=== PATIENT | male | born 1955 | race Caucasian/White ===

== ENCOUNTER 2016-10-20 10:31 | Inpatient (IN) | payer OTHER ==
--- NOTE | ~2016-10-20 | PA ---
Unit #: [id number] #: [id number] Patient: ABDOULAYE RIDDLE [id number] [facility] [address] [place] [address] [id number] I MR#: [id number] NAME: ABDOULAYE RIDDLE ROOM: P121 Age: 61 Sex: M Admission Date: 10/20/2016 : 1955 Date of Assessment: 10/20/2016 Attending Physician: Atiya Merlos M.D. Admitting Physician: Atiya Merlos M.D. Primary Care Physician: Cora Herrera M.D. PSYCHIATRIC ASSESSMENT DATE OF SERVICE 10/20/2016. IDENTIFYING DATA Mr. Riddle is a 61-year-old single white male, who is a resident of [place], [place] and was self-referred to the hospital. CHIEF COMPLAINT "I'm scared. I'm having thoughts of ending it." HISTORY OF PRESENT ILLNESS This is a 61-year-old white male, who was self-referred to the hospital reporting that he is scared and he is having suicidal thoughts, "I'm tired of depression." The patient reports being depressed for over 20 years and his son is a recovering heroin addict and he is afraid he is going to relapse and also reports losing his living-in girlfriend and her children and grandchildren which he considers as family and does report increasing depression, anxiety, irritability, restlessness and agony, feelings of hopelessness and helplessness, and reports suicidal ideations at this time with the plan of taking sleeping pills and was unable to contract for safety and as such, recommendation for inpatient level of care for safety and stabilization was made. SUBSTANCE ABUSE HISTORY The patient denies any history of alcohol or drug abuse. PAST PSYCHIATRIC HISTORY The patient has had psychiatric treatment and has been diagnosed and treated for mood disorder. Review of the medical records indicate that he is supposed to be on a combination of Remeron and Wellbutrin, though it is not clear if he is compliant with the medication as he has not been able to show a therapeutic response to medications. PAST MEDICAL HISTORY Hypertension, dyslipidemia, status post knee replacement. ALLERGIES No known medication allergies. PERSONAL AND SOCIAL HISTORY A 61-year-old white male, who reports that he is single, unemployed, and lives at home with his son and has fairly decent social support system. Unit #: [id number] #: [id number] Patient: ABDOULAYE RIDDLE MENTAL STATUS EXAMINATION Young white male who was casually dressed with fair personal hygiene, appears to be in no acute distress or discomfort. He was awake and alert on interaction with intact orientation to time, place, and person. His mood was anxious and depressed with a congruent affect. His speech was slow and goal directed. He reports having suicidal ideation, but denies any homicidal ideations, and also denies any auditory or visual hallucinations. His insight and judgment remain significantly impaired. DIAGNOSTIC IMPRESSION Psychiatric: Major depressive disorder, recurrent, moderate, without psychotic features. Medical: Hypertension, dyslipidemia, status post knee placement. Stressors: Moderate psychosocial stressors. TREATMENT PLAN 1. The patient has presented with history of mood disorder and has been decompensating and will need inpatient hospitalization for safety and stabilization. We will start him back on his home medications. We will adjust the medications and monitor response. 2. Supportive therapy was provided to the patient. 3. Safe, structured, and nourishing environment will be provided. ESTIMATED LENGTH OF STAY 5 to 7 days. ABILITY TO HELP SELF Limited. WILLINGNESS TO HELP SELF The patient appears to be willing to help self. STRENGTHS 1. Communicative. 2. Cooperative. PROBLEMS 1. Chronic dysphoric symptoms. 2. Poor social support system. DISCHARGE CRITERIA This will be contingent upon the patient's ability to show resolution of his depression and anxiety and his ability to stay safe to himself, particularly after discharge from the hospital. Dictated by... Jairo Lewis/jeromy TD: 10/21/2016 22:59 JOB #: [id number] Unit #: [id number] #: [id number] Patient: ABDOULAYE RIDDLE PSYCHIATRIC ASSESSMENT X Atiya Merlos MD X PSYCHIATRIC ASSESSMENT
--- NOTE | ~2016-10-20 | PN ---
Unit #: [id number] #: [id number] Patient: ABDOULAYE RIDDLE [id number] [facility] [address] [place] [address] [id number] MR#: [id number] NAME: ABDOULAYE RIDDLE ROOM: [facility] Age: 61 Sex: M Admission Date: 10/20/2016 : 1955 Attending Physician: Atiya Merlos M.D. Admitting Physician: Atiya Merlos M.D. Primary Care Physician: Jairo Best PROGRESS NOTES DATE October 24, 2016 DISCUSSION Mr. Riddle is a 61-year-old white male, who was seen today and chart was reviewed and the case was discussed with the staff. He has been anxious, withdrawn, but has not shown any agitation or irritability, and he has been cooperative with the treatment recommendations. He has been taking the medications and tolerating them fairly well. MENTAL STATUS EXAMINATION An elderly white male, who was casually dressed with fair personal hygiene and appears to be in no acute distress or discomfort. He was awake and alert on interaction with intact orientation. His mood is anxious with a congruent affect. His speech is slow and goal-directed. He denies any suicidal or homicidal ideations, and also denies any auditory or visual hallucinations. His insight and judgment remain slightly impaired. TREATMENT PLAN 1. We will continue him on his current medications and treatment protocol, and will monitor his response to the medications, and make further adjustments as needed. 2. We will continue to followup. Dictated by... Jairo Lewis/binu TD: 10/25/2016 11:58 JOB #: [id number] Unit #: [id number] #: [id number] Patient: ABDOULAYE RIDDLE PROGRESS NOTES X Atiya Merlos MD PROGRESS NOTE
--- NOTE | ~2016-10-20 | HP ---
Unit #: [id number] #: [id number] Patient: ABDOULAYE CLEMENTS [id number] [place] [address] [id number] I MR#: [id number] NAME: ABDOULAYE CLEMENTS ROOM: [facility] Age: 61 Sex: M Admission Date: 10/20/2016 : 1955 Attending Physician: Atiya Merlos M.D. Admitting Physician: Atiya Merlos M.D. Primary Care Physician: Cora Herrera M.D. HISTORY AND PHYSICAL HISTORY OF PRESENT ILLNESS The patient is a 61-year-old male admitted to [facility] on 10/20/2016 for suicidal ideation. PAST MEDICAL HISTORY 1. Hypertension. 2. Hyperlipidemia. PAST SURGICAL HISTORY 1. Bilateral knee replacements. 2. Colon resection. 3. Liver surgery. 4. Cholecystectomy. SOCIAL HISTORY The patient works at [employer] and lives with his son. He smokes one to two cigars per day. FAMILY HISTORY Noncontributory. ALLERGIES No known drug allergies. CURRENT MEDICATIONS 1. Wellbutrin. 2. Mirtazapine. 3. Amlodipine. 4. Lovastatin. REVIEW OF SYSTEMS CONSTITUTIONAL: No fever or chills. HEENT: Denies any sore throat, ear pain or runny nose. CARDIOVASCULAR: Denies chest pain, irregular heart rhythm or palpitations. CHEST: Denies shortness of breath or cough. No hemoptysis. GASTROINTESTINAL: Denies nausea, vomiting, diarrhea or chronic constipation. ENDOCRINE: Denies history of increased thirst or urination. No recent significant weight loss or gain. GENITOURINARY: Denies dysuria, frequency, or hematuria. SKIN: Denies any rashes. HEMATOLOGIC: Denies history of increased bleeding or bruising. MUSCULOSKELETAL: Denies any hot, swollen joints. No generalized muscle pain. Unit #: [id number] #: [id number] Patient: ABDOULAYE CLEMENTS NEUROLOGIC: Denies problems with vision or speech. No frequent, severe headaches. No numbness, tingling or weakness in any extremities. Denies loss of bladder or bowel control. PHYSICAL EXAMINATION GENERAL: The patient is awake, alert and oriented, in no acute distress. VITAL SIGNS: Temperature 98.9, heart rate 108, respiratory rate 16, blood pressure 134/80, height 5'10". WEIGHT: 180 pounds. SKIN: Warm and dry without rash or lesion. HEENT: Normocephalic. TMs not viewed. Oral and nasal passages clear. Conjunctivae clear. PERRLA. EOMs intact. NECK: Supple without lymphadenopathy or thyromegaly. HEART: Regular rate and rhythm without murmur. LUNGS: Clear. ABDOMEN: Soft, nontender. : Not done. EXTREMITIES: No evidence of cyanosis, clubbing or edema. Moves all without focal deficit. NEUROLOGICAL: Grossly within normal limits. Cranial Nerves: II: Visual rowe are intact. III, IV AND : Extraocular movements are intact. Pupils are equal, round and reactive to light. V: Facial sensation is grossly normal. VII: Facial movements and expression are normal. VIII: Auditory acuity grossly intact. IX, X: Uvula is midline. Phonation is normal. XI: Patient shrugs shoulders and turns head normally. XII: Tongue protrudes in the midline. Sensory and Motor Function: Sensory and motor sensation is grossly normal. Motor: moves all extremities well. ASSESSMENT 1. Psychiatric admission. 2. Hyperlipidemia. RECOMMENDATION Psychiatric: Per psychiatrist. Medical: No contraindications to participating in facility activities. MEDICAL PROGNOSIS Good. MEDICAL CONDITION Stable. Dictated by... Deborah Walsh/shawnee TD: 10/21/2016 08:50 JOB #: [id number] Unit #: [id number] #: [id number] Patient: ABDOULAYE CLEMENTS HISTORY AND PHYSICAL X ELLIE ELLISON APRN X HISTORY AND PHYSICAL
--- NOTE | ~2016-10-20 | PN ---
Unit #: [id number] #: [id number] Patient: ABDOULAYE RIDDLE [id number] [facility] [address] [place] [address] [id number] I MR#: [id number] NAME: ABDOULAYE RIDDLE ROOM: P121 Age: 61 Sex: M Admission Date: 10/20/2016 : 1955 Attending Physician: Atiya Merlos M.D. Admitting Physician: Atiya Merlos M.D. Primary Care Physician: Jairo Best PROGRESS NOTES DATE OF SERVICE: 10/21/2016 SUBJECTIVE Mr. Riddle is a 61-year-old white male with mood disorder, who was seen today and chart was reviewed, and case was discussed with the staff. He was seen to be anxious, withdrawn, disorganized, and unable to carry on meaningful conversation . Meanwhile, he has not shown any agitation or aggression. MENTAL STATUS EXAMINATION An elderly white male who was casually dressed with fair personal hygiene, appears to be in no acute distress or discomfort. He was awake and alert with impaired attention and concentration. His mood was anxious with a congruent affect. His speech is slow and restricted in content. His thought processes were disorganized with some looseness of associations, and paranoid ideations. His insight and judgment remain significantly impaired. TREATMENT PLAN 1. We will continue him on his current medications and treatment protocol. We will monitor his response to the medications and make further adjustments as needed. 2. We will continue to follow up. Dictated by... Jairo Lewis/jeromy TD: 10/23/2016 07:18 JOB #: [id number] [facility] PROGRESS NOTES X Atiya Merlos MD PROGRESS NOTE
--- NOTE | ~2016-10-20 | DS ---
Unit #: [id number] #: [id number] Patient: ABD[facility]IDDLE [id number] [facility] [place] [address] [id number] I MR#: [id number] NAME: ABDOULAYE RIDDLE ROOM: [facility] Age: 61 Sex: M Admission Date: 10/20/2016 : 1955 Discharge Date: 10/25/2016 Attending Physician: Atiya Merlos M.D. Primary Care Physician: Cora Herrera M.D. DISCHARGE SUMMARY IDENTIFYING DATA Mr. Riddle is a 61-year-old single, white male, who is a resident of [place], [place] and was self-referred to the hospital on a voluntary basis. DISCHARGE DIAGNOSES Psychiatric: Major depressive disorder, recurrent, moderate, without psychotic feature. Medical: Hypertension, dyslipidemia, status post knee replacement. Stressors: Moderate psychosocial stressors. HISTORY OF PRESENT ILLNESS Please see initial psychiatric evaluation for details. PAST PSYCHIATRIC HISTORY Please see initial psychiatric evaluation for details. PAST MEDICAL HISTORY Please see initial psychiatric evaluation for details. HOSPITAL COURSE The patient was admitted to the adult psychiatric unit at [facility] archana Garcia and was oriented to the hospital environment. Routine p.r.n. medications were initiated, and he was started back on his home medications. Initially, Vistaril was given as the patient was complaining of significant anxiety, however, he stated that it was making his anxiety worse and was making him stay awake, and as such, Vistaril was switched to BuSpar with good tolerability and therapeutic response. Followed by which, it was decided that he will be discharged home and will continue treatment on an outpatient basis. DISCHARGE MEDICATIONS Wellbutrin XL 150 mg in the morning for depression, Remeron 15 mg at bedtime for sleep, and BuSpar 10 mg b.i.d. for anxiety. DISCHARGE CONDITION Stable. PROGNOSIS Fair. Dictated by... Atiya Merlos M.D. Unit #: [id number] #: [id number] Patient: ABDOULAYE RIDDLE IAA/modl TD: 10/25/2016 06:46 JOB #: [id number] DISCHARGE SUMMARY X Atiya Merlos MD DISCHARGE SUMMARY
--- NOTE | ~2016-10-20 | PN ---
Unit #: [id number] #: [id number] Patient: ABDOULAYE RIDDLE [id number] [facility] [address] [place] [address] [id number] I MR#: [id number] NAME: ABDOULAYE RIDDLE ROOM: [facility] Age: 61 Sex: M Admission Date: 10/20/2016 : 1955 Attending Physician: Atiya Merlos M.D. Admitting Physician: Atiya Merlos M.D. Primary Care Physician: Jairo Best PROGRESS NOTES DATE OF SERVICE: 10/22/2016 SUBJECTIVE Mr. Riddle is a 61-year-old white male with mood disorder, who was seen today and chart was reviewed, and case was discussed with the staff, who reports the patient has been anxious, withdrawn, depressed and rather seclusive to himself. Meanwhile, he has been cooperative with treatment recommendations and has been taking the medications and tolerating them fairly well with no reported side effects. MENTAL STATUS EXAMINATION An elderly white male who was casually dressed with fair personal hygiene, appears to be in no acute distress or discomfort. He was awake and alert on interaction with intact orientation. His mood was anxious with a congruent affect. He denies any suicidal or homicidal ideation. His insight and judgment remain slightly impaired. TREATMENT PLAN 1. We will continue him on his current medications and treatment protocol. We will monitor his response and make further adjustments as needed. 2. We will continue to follow up. Dictated by... Jairo Lewis/jeromy TD: 10/24/2016 07:09 JOB #: [id number] [facility] PROGRESS NOTES X Atiya Merlos MD PROGRESS NOTE
--- NOTE | ~2016-10-20 | PN ---
Unit #: [id number] #: [id number] Patient: ABDOULAYE RIDDLE [id number] [facility] [address] [place] [address] [id number] I MR#: [id number] NAME: ABDOULAYE RIDDLE ROOM: P121 Age: 61 Sex: M Admission Date: 10/20/2016 : 1955 Attending Physician: Atiya Merlos M.D. Admitting Physician: Atiya Merlos M.D. Primary Care Physician: Cora Herrera M.D. [facility] PROGRESS NOTES DATE October 23, 2016 DISCUSSION Mr. Riddle is a 61-year-old white male, with mood disorder, who was seen today and chart was reviewed and the case was discussed with the staff. He has been complaining of significant anxiety. Meanwhile, he has been taking the medications but does not feel that the medication is effectively controlling his anxiety. MENTAL STATUS EXAMINATION Elderly white male, who was casually dressed with fair personal hygiene and appears to be in no acute distress or discomfort. He was awake and alert with impaired attention and concentration. His mood is anxious with a congruent affect. He denies any suicidal or homicidal ideations. His insight and judgment remain slightly impaired. TREATMENT PLAN 1. We will continue him on his current medications and treatment protocol, and will monitor his response to the medications, and make further adjustments as needed. 2. We will continue to followup. Dictated by... Jairo Lewis/binu TD: 10/24/2016 10:33 JOB #: [id number] [facility] PROGRESS NOTES X Atiya Merlos MD PROGRESS NOTE
[~2016-10-20 10:31] MED LIST: EFFEXOR XR PO; LEVAQUIN PO; LORTAB 10-5001 EACH PO; NORVASC10 MG PO; PRILOSEC PO; REMERON PO; THORAZINE PO
[2016-10-21 09:32] LABS: BASOPHIL% 0.5 % (0-2.5); EOSINOPHIL# 0.1 X10e3 (0-0.7); EOSINOPHIL% 1.1 % (0.0-7.0); HEMATOCRIT 47.6 % (38.0-50.0); HEMOGLOBIN 16.2 gm/dL (13.0-16.0); LYMPHOCYTE# 1.5 X10e3 (1.0-3.5); LYMPHOCYTE% 18.2 % (17.0-45.0); MEAN CELL VOLUME 91.5 FL (83-96); MEAN CORPUSCULAR HEMOGLOBIN 31.2 PG (28-34); MEAN CORPUSCULAR HGB CONC 34.1 g/dL (30-36); MEAN PLATELET VOLUME 8.2 FL (6.5-11.5); MONOCYTE# 0.8 X10e3 (0-1.0); MONOCYTE% 9.5 % (3.0-12.0); NEUTROPHIL# 5.8 X10e3 (1.5-7.1); NEUTROPHIL% 70.7 % (40-75); PLATELET COUNT 289 X10e3 (140-420); RED CELL DISTRIBUTION WIDTH 13.9 % (11.0-15.5); WHITE BLOOD COUNT 8.2 X10e3 (4.0-10.5)
[2016-10-21 09:42] LABS: DIFF IND NO
[2016-10-21 09:59] LABS: THYROID STIMULATING HORMONE 1.05 uIU/ml (0.34-5.60)
[2016-10-21 10:05] LABS: FREE THYROXIN (T4) 0.9 ng/dL (0.58-1.64)
[2016-10-21 10:13] LABS: ALBUMIN SERUM 3.9 g/dL (3.5-5.0); ALKALINE PHOSPHATASE 90 U/L (32-92); ALT (SGPT) 40 U/L (10-40); AST (SGOT) 26 U/L (10-42); BILIRUBIN,TOTAL 0.6 mg/dL (0.2-2.0); BLOOD UREA NITROGEN 18 mg/dL (9-23); CALCIUM SERUM 9.3 mg/dL (8.4-10.2); CARBON DIOXIDE 27 mmol/L (22-31); CHLORIDE 109 mmol/L (100-111); CREATININE SERUM 0.8 mg/dL (0.6-1.4); GLOM FILT RATE Estimated ABOVE60 mL/min (>60); GLUCOSE FASTING 111 mg/dL (70-110); POTASSIUM 4.6 mmol/L (3.5-5.1); PROTEIN TOTAL SERUM 7.1 g/dL (6.0-8.3); SODIUM 144 mmol/L (135-145)
== END 2016-10-25 11:02 | disposition home or self-care (01) | DRG 885 ==
LOC: P1S 10:31
PROVIDERS: Psychiatry & Neurology Psychiatry
DX: F33.1 Major depressive disorder, recurrent, moderate (principal); I10 Essential (primary) hypertension; E78.5 Hyperlipidemia, unspecified; T14.91 Suicide attempt; F17.210 Nicotine dependence, cigarettes, uncomplicated; Z96.653 Presence of artificial knee joint, bilateral
CPT/HCPCS: 80053; 84439; 84443; 85025